=== PATIENT | female | born 1965 | race Caucasian/White ===

== ENCOUNTER → 2017-03-08 | Outpatient (CLI) | payer OTHER ==
[2017-03-08 10:08] LABS: CHOLESTEROL/HDL RATIO 4.3; THYROID STIMULATING HORMONE 10.9 uIu/ml (0.300-4.500)
== END | disposition home or self-care (01) ==
LOC: C.LAB 07:22
PROVIDERS: ATTEND Family Medicine
DX: E03.9 Hypothyroidism, unspecified (principal); Z13.220 Encounter for screening for lipoid disorders; Z13.1 Encounter for screening for diabetes mellitus

== ENCOUNTER → 2017-04-05 | Outpatient (CLI) | payer OTHER | END | disposition home or self-care (01) | LOC: C.LABPBG 10:04 | PROVIDERS: ATTEND Family Medicine | DX: E03.9 Hypothyroidism, unspecified (principal) ==

== ENCOUNTER → 2017-05-24 | Outpatient (CLI) | payer OTHER | END | disposition home or self-care (01) | LOC: C.LAB1850 07:34 | PROVIDERS: ATTEND Family Medicine | DX: E03.9 Hypothyroidism, unspecified (principal) ==

== ENCOUNTER → 2018-03-22 | Outpatient (CLI) | payer OTHER ==
[~2018-03-22] MED LIST: ALOE PO; ASPI81TA28 PO; KFL/250 PO; LEVO75TA5 PO
[2018-03-22 09:39] LABS: EOS % 1.4 %; EOS ABS # 0.08 K/uL (0-0.5); HEMATOCRIT 38.4 % (37-47); HEMOGLOBIN 13.3 g/dL (12.0-16.0); IG# 0.01 K/uL (0.00-0.02); LYMPH % 34.1 %; MEAN CELL VOLUME 86.1 fL (80-100); MEAN CORPUSCULAR HEMOGLOBIN 29.8 pg (25-34); MEAN CORPUSCULAR HGB CONC 34.6 g/dl (32-36); MEAN PLATELET VOLUME 8.9 fL (7.4-10.4); MONO % 8.9 %; MONO ABS # 0.52 K/uL (0.11-0.59); NEUT % 55.4 %; NEUT ABS # 3.26 K/uL (1.4-6.5); PLATELET COUNT 261 K/uL (130-400); RED CELL DISTRIBUTION WIDTH CV 12.3 % (11.5-14.5); RED CELL DISTRIBUTION WIDTH SD 39.1 fL (36.4-46.3); WHITE BLOOD COUNT 5.87 K/uL (4.8-10.8)
[2018-03-22 09:45] LABS: INR 0.9 (0.9-1.1); PTT PATIENT 25.4 SECONDS (21.0-31.0)
[2018-03-22 10:54] LABS: BLOOD UREA NITROGEN 13 mg/dl (7-18); CALCIUM 9.4 mg/dl (8.5-10.1); CARBON DIOXIDE 25 mmol/L (21-32); CHOLESTEROL 199 mg/dl (0-200); CREATININE 0.83 mg/dl (0.60-1.20); GLUCOSE,FASTING 92 mg/dl (70-99); LDL CHOLESTEROL CALCULATED 118 mg/dl; POTASSIUM 3.6 mmol/L (3.5-5.1); SODIUM 138 mmol/L (136-145)
== END | disposition home or self-care (01) ==
LOC: C.CPL 07:25
DX: Z01.818 Encounter for other preprocedural examination (principal); Z00.00 Encounter for general adult medical examination without abnormal findings; Z02.89 Encounter for other administrative examinations; E03.9 Hypothyroidism, unspecified